=== PATIENT | female | born 1965 | race Caucasian/White ===

== ENCOUNTER 2017-10-06 10:23 | Emergency (ER) | payer OTHER ==
[~2017-10-06] VITALS: Ht 154.9 cm; Wt 67.6 kg
[~2017-10-06 10:23] MED LIST: PRENATAL VITS PO; [UNRECOGNIZED DRUG - CODE] PO
[2017-10-06 10:31] VITALS: BP 163/90
--- NOTE | 2017-10-06 10:40 | NUR ---
Patient ambulated to bed 12.
--- NOTE | 2017-10-06 10:53 | NUR ---
ASSUMED PATIENT CARE, CONCUR WITH TRIAGE ASSESSMENT. BEDDED IN ER 12, ORIENTED TO PLAN OF CARE. INITIATED CARDIAC MONITORING. SAFETY PRECAUTIONS ENFORCED.
[2017-10-06] MEDS: ASPIRIN 81 MG TAB.CHEW PO ONE (10:55)
[2017-10-06 11:26] LABS: BASOPHILS # (AUTO) 0.1 K/uL (0.00-0.22); BASOPHILS % (AUTO) 3.1 % (0.0-2.0); EOSINOPHILS # (AUTO) 0.1 K/uL (0-0.4); EOSINOPHILS % (AUTO) 2.6 % (0.0-4.0); HEMOGLOBIN 12.8 g/dL (12.0-16.0); LYMPHOCYTES # (AUTO) 1.3 K/uL (2.5-16.5); LYMPHOCYTES % (AUTO) 34.5 % (20.5-51.1); MEAN CORPUSCULAR HEMOGLOBIN 29 pg (27-31); MEAN CORPUSCULAR HGB CONC 34 g/dL (33-37); MEAN CORPUSCULAR VOLUME 87 fL (80-94); MONOCYTES # (AUTO) 0.2 K/uL (0.8-1.0); MONOCYTES % (AUTO) 6.1 % (1.7-9.3); NEUTROPHILS # (AUTO) 2.1 K/uL (1.8-7.7); NEUTROPHILS % (AUTO) 53.7 % (42.2-75.2); PLATELET COUNT (AUTO) 239 K/uL (140-450); RED BLOOD CELL COUNT(AUTO) 4.37 MIL/uL (4.20-5.40); RED CELL DISTRIBUTION WIDTH 12.1 % (11.6-13.7); WHITE BLOOD COUNT (AUTO) 3.8 K/uL (4.8-10.8)
[2017-10-06 11:44] LABS: ANION GAP 9.6 (8-16); CARBON DIOXIDE 28.1 mmol/L (21-32); CREATININE 0.7 mg/dL (0.6-1.3); POTASSIUM 3.7 mmol/L (3.5-5.1)
[2017-10-06 11:48] LABS: PROTHROMBIN TIME 9.9 secs (10.8-13.4)
[2017-10-06 11:50] LABS: ALBUMIN 3.8 g/dL (3.4-5.0); TOTAL BILIRUBIN 0.4 mg/dL (0.0-1.0)
[2017-10-06 12:34] VITALS: BP 136/75
[2017-10-06] MEDS: KETOROLAC 60 MG/2 ML VIAL IM ONE (12:34)
--- NOTE | 2017-10-06 12:40 | NUR ---
DISPO AND MEDICAL DECISION MAKING, DC HOME WITH INSTRUCTIONS AND PRESCRIPTIONS, PATIENT VERBALIZING RELIEF FROM CP, NO SOB, NO DISTRESS. VSWNL. DC HOME AMBULATORY, ALL INSTRUCTIONS UNDERSTOOD ACCORDINGLY.
== END 2017-10-06 12:34 | disposition home or self-care (01) ==
LOC: MED 10:23
DX: R07.89 Other chest pain (principal); R00.2 Palpitations; M19.90 Unspecified osteoarthritis, unspecified site; Z88.5 Allergy status to narcotic agent; Z79.899 Other long term (current) drug therapy
CPT/HCPCS: 36415; 71010; 80053; 81002; 81025; 83880; 84484; 85025; 85610; 85730; 93005; 96372; 99285; J1885; Q0092

== ENCOUNTER 2017-10-26 13:04 | Emergency (ER) | payer OTHER ==
[~2017-10-26] VITALS: Ht 157.5 cm; Wt 67.6 kg
[2017-10-26 13:09] VITALS: BP 111/61
--- NOTE | 2017-10-26 13:20 | NUR ---
Patient ambulated to bed 02.
--- NOTE | 2017-10-26 13:21 | NUR ---
Umm yañez in EDM - 10/26/17 at 1604 by [id number] BIB SELF WITH C/O BL MID/LOWER BACK PAIN RADIATING BL LEGS X 3 MONTHS, WORSE PAST TWO DAYS; PT ALSO C/O BL INGUINAL REGION; PT DENIES ANY URINARY COMPLAINTS HX--DENIES
[2017-10-26] MEDS ORDERED: KETOROLAC 60 MG/2 ML VIAL IM ONE (13:50)
[2017-10-26 14:10] VITALS: BP 119/71
== END 2017-10-26 14:10 | disposition home or self-care (01) ==
LOC: MED 13:04
DX: M54.40 Lumbago with sciatica, unspecified side (principal); Z79.899 Other long term (current) drug therapy; Z88.5 Allergy status to narcotic agent; Z88.8 Allergy status to other drugs, medicaments and biological substances
CPT/HCPCS: 96372; 99283; J1885

== ENCOUNTER 2019-01-26 17:46 | Emergency (ER) | payer MEDICAID, OTHER ==
[~2019-01-26] VITALS: Ht 154.9 cm; Wt 66.2 kg
[2019-01-26 17:52] VITALS: BP 138/96
--- NOTE | 2019-01-26 19:22 | NUR ---
PT TO ER BED 9
--- NOTE | 2019-01-26 19:35 | NUR ---
BIB SON WITH C/O GENEERALIZED BODY ACHES, HEADACHE, FEVER AND COUGH THAT STARTED THIS MORNING. STATES PRESSURE IN EARS. DENIES NVD, CP, SOB. LUNG SOUND CLEAR. SON AT BEDSIDE. BED IN LOW LOCKED POSITION
--- NOTE | 2019-01-26 19:54 | NUR ---
Dr. Deleon evaluating patient at bedside.
[2019-01-26] MEDS ORDERED: KETOROLAC 60 MG/2 ML VIAL IM ONE ×2 (20:00→20:15)
[2019-01-26 20:16] VITALS: BP 138/96
--- NOTE | 2019-01-26 20:16 | NUR ---
Patient discharged with v/s stable. Written and verbal after care instructions given and explained. Patient alert, oriented and verbalized understanding of instructions. Ambulatory with steady gait. All questions addressed prior to discharge. ID band removed. Patient advised to follow up with PMD. Rx of ZOFRAN, TAMIFLU, MOTRIN given. Patient educated on indication of medication including possible reaction and side effects. Opportunity to ask questions provided and answered.
== END 2019-01-26 20:16 | disposition home or self-care (01) ==
LOC: MED 17:46
DX: R50.9 Fever, unspecified (principal); R11.0 Nausea; R07.9 Chest pain, unspecified; Z79.899 Other long term (current) drug therapy; Z88.6 Allergy status to analgesic agent; Z88.5 Allergy status to narcotic agent; Z98.890 Other specified postprocedural states
CPT/HCPCS: 96372; 99283; J1885

== ENCOUNTER 2019-08-03 14:36 | Emergency (ER) | payer MEDICAID ==
[~2019-08-03] VITALS: Ht 154.9 cm; Wt 66.2 kg
[2019-08-03 14:53] VITALS: BP 178/77
--- NOTE | 2019-08-03 16:36 | NUR ---
PT AMBULATED TO CHAIR B
--- NOTE | 2019-08-03 16:48 | NUR ---
PT BIB SELF FOR RT EYE SCLERA REDDENING, AND RIGHT EYE PAIN. PT STATES SHE HAD NO TRAUMA TO EYE AND REPORTS EYE REDNESS TO LEFT EYE LAST WEEK. NO DRAINAGE TO EYE OR BLURRED VISION. PT AWAKE AND ALERT SITTING IN CHAIR. PMH HTN BUT NO LONGER TAKES BP MEDS D/T B/P STABLE.
[2019-08-03] MEDS ORDERED: cloNIDine 0.1 MG TAB PO ONE (17:20)
[2019-08-03] MEDS ORDERED: ACETAMINOPHEN EXTRA STRENGTH 500 MG TAB PO ONE (18:15)
[2019-08-03 19:01] VITALS: BP 141/67
== END 2019-08-03 19:01 | disposition home or self-care (01) ==
LOC: MED 14:36
DX: H11.31 Conjunctival hemorrhage, right eye (principal); I10 Essential (primary) hypertension; Z88.6 Allergy status to analgesic agent; Z88.5 Allergy status to narcotic agent; Z79.899 Other long term (current) drug therapy
CPT/HCPCS: 99283